=== PATIENT | female | born 1980 | race Caucasian/White ===

== ENCOUNTER → 2016-08-01 | Outpatient (CLI) | payer MEDICARE, MEDICAID ==
[2016-08-01 10:14] LABS: MEAN CORPUSCULAR HEMOGLOBIN 31.4 pg (27.0-33.4); MEAN CORPUSCULAR HGB CONC 34.1 g/dL (32.0-36.0); MEAN CORPUSCULAR VOLUME 92 fl (80-97); RED BLOOD COUNT 4.78 10^6/uL (3.72-5.28); RED CELL DISTRIBUTION WIDTH 13.5 % (11.5-14.0); WHITE BLOOD COUNT 10.3 10^3/uL (4.0-10.5)
[2016-08-01 10:17] LABS: APPEARANCE,URINE CLEAR; BILIRUBIN,URINE NEGATIVE (NEGATIVE); GLUCOSE, URINE >=500 mg/dL (NEGATIVE); KETONES,URINE NEGATIVE (NEGATIVE); LEUKOCYTE ESTERASE,URINE NEGATIVE (NEGATIVE); NITRITE,URINE NEGATIVE (NEGATIVE); PROTEIN,URINE NEGATIVE (NEGATIVE); URINE SPECIFIC GRAVITY 1.009; UROBILINOGEN,URINE NEGATIVE mg/dL (<2.0)
[2016-08-01 10:32] LABS: URINE BARBITURATES SCREEN NEGATIVE; URINE METHADONE SCREEN NEGATIVE; URINE OPIATES LOW NEGATIVE; URINE PHENCYCLIDINE SCREEN NEGATIVE
[2016-08-01 10:34] LABS: ALANINE AMINOTRANSFERASE 38 U/L (9-52); ALBUMIN 4.3 g/dL (3.5-5.0); ALKALINE PHOSPHATASE 86 U/L (38-126); ANION GAP 13 (5-19); ASPARTATE AMINO TRANSFERASE 21 U/L (14-36); BILIRUBIN,DIRECT 0.4 mg/dL (0.0-0.4); BILIRUBIN,TOTAL 0.6 mg/dL (0.2-1.3); BLOOD UREA NITROGEN 12 mg/dL (7-20); CALCIUM 9.6 mg/dL (8.4-10.2); CARBON DIOXIDE 20 mmol/L (22-30); CHLORIDE 107 mmol/L (98-107); CHOLESTEROL 221.61 mg/dL (0-200); Direct HDL 41 mg/dL (>40); GLUCOSE 292 mg/dL (75-110); POTASSIUM 4.6 mmol/L (3.6-5.0); SODIUM 139.8 mmol/L (137-145); TOTAL PROTEIN 7.9 g/dL (6.3-8.2); TRIGLYCERIDES 190 mg/dL (<150)
[2016-08-01 10:46] LABS: DIRECT LDL 148 mg/dL (<100)
== END ==
LOC: OD 09:07
PROVIDERS: ATTEND Nurse Practitioner Psychiatric/Mental Health
DX: Z51.81 Encounter for therapeutic drug level monitoring (principal); Z79.899 Other long term (current) drug therapy
CPT/HCPCS: 36415; 80053; 80061; 80307; 81001; 84443; 85027

== ENCOUNTER 2017-07-31 23:32 | Emergency (ER) | payer MEDICARE, MEDICAID ==
--- NOTE | 2017-08-01 00:04 | ER Document Report ---
ED General - General Chief Complaint: headache, ear, neck and throat pain Stated Complaint: HEADACHE Time Seen by Provider: 08/01/17 00:04 Mode of Arrival: Ambulatory Information source: Patient Notes: 36-year-old with past medical history of thyroid problems who presented today for evaluation of throat pain, ear pain as well as dry cough for the past few days. Patient is actively seen primary care provider as well as recently referred to ENT for further workup and management of her thyroid disease. Patient also reported facial pain as well as dental pain associated with her symptoms. Patient has no evidence of trismus or drooling. Took BC powder at home with no improvement of her symptoms. TRAVEL OUTSIDE OF THE [place] IN LAST 30 DAYS: No - Related Data Allergies/Adverse Reactions: haloperidol [From Haldol] Allergy (Verified 09/29/15 08:52) haloperidol lactate [From Haldol] Allergy (Verified 09/29/15 08:52) hydroxyzine [From Vistaril] Allergy (Verified 11/12/15 23:15) Past Medical History - General Information source: Patient - Social History Smoking Status: Current Every Day Smoker Family History: Reviewed & Not Pertinent Patient has suicidal ideation: No Patient has homicidal ideation: No Endocrine Medical History: Reports: Hx Diabetes Mellitus Type 1 - PREDIABETIC, Hx Diabetes Mellitus Type 2 Renal/ Medical History: Denies: Hx Peritoneal Dialysis Psychiatric Medical History: Reports: Hx Anxiety, Hx Bipolar Disorder, Hx Schizophrenia Past Surgical History: Reports: Hx Oral Surgery - Immunizations Immunizations up to date: Yes Hx Diphtheria, Pertussis, Tetanus Vaccination: No Hx Pneumococcal Vaccination: 03/12/00 Review of Systems - Review of Systems Notes: REVIEW OF SYSTEMS: CONSTITUTIONAL: -fevers, -chills EENT: -eye pain, -difficulty swallowing, -nasal congestion, + dental pain, + ear pain, + sore throat CARDIOVASCULAR: -chest pain, -syncope. RESPIRATORY: + Cough, -SOB GASTROINTESTINAL: -abdominal pain, -nausea, -vomiting, -diarrhea GENITOURINARY: -dysuria, -hematuria MUSCULOSKELETAL: -back pain, -neck pain SKIN: -rash or skin lesions. HEMATOLOGIC: -easy bruising or bleeding. LYMPHATIC: -swollen, enlarged glands. NEUROLOGICAL: -altered mental status or loss of consciousness, -headache, - neurologic symptoms PSYCHIATRIC: -anxiety, -depression. ALL OTHER SYSTEMS REVIEWED AND NEGATIVE. Physical Exam - Notes Notes: Reviewed vital signs and nursing note as charted by RN. CONSTITUTIONAL: Alert and oriented and responds appropriately to questions, overweight HEAD: Normocephalic; atraumatic EYES: PERRL; Conjunctivae clear, sclerae non-icteric ENT: normal nose; rhinorrhea, patient has erythema of the pharynx without any exudates or trismus, no stridor NECK: Supple without meningismus; non-tender; no cervical lymphadenopathy, no masses CARD: Regular rate and rhythm; no murmurs, no clicks, no rubs, no gallops; symmetric distal pulses RESP: Normal chest excursion without splinting or tachypnea; breath sounds clear and equal bilaterally ABD/GI: Normal bowel sounds; non-distended; soft, BACK: The back appears normal and is non-tender to palpation EXT: Normal ROM in all joints; non-tender to palpation; no cyanosis, no effusions, no edema SKIN: Normal color for age and race; warm; dry; good turgor; capillary refill < 2 seconds; no acute lesions noted NEURO: .Cranial nerves 3-12 intact. Motor strength 5/5 bilaterally. Sensation intact to touch bilaterally. No pronator drift. Finger to nose intact bilaterally PSYCH: The patient's mood and manner are appropriate. Grooming and personal hygiene are appropriate. Course - Re-evaluation Re-evalutation: 36 here for evaluation of sore throat, ear pain as well as dental pain and facial pain Differential diagnoses includes URI, sinusitis, acute pharyngitis Examination did not reveal any evidence of otitis media We will obtain rapid strep as well as give patient Motrin for her headache as well as sore throat Disposition per results 08/01/17 00:44 08/01/17 01:02 Rapid strep is negative, will treat patient with Augmentin for possible sinusitis Follow-up with primary care physician Patient was given strict return precautions to come back if symptoms are not improving Discharge - Discharge Clinical Impression: Acute bacterial sinusitis Condition: Stable Instructions: Sinusitis ([facility]) Additional Instructions: Please take antibiotics as prescribed Use [id number] decongestants to help her symptoms Use nasal rinse Come back if it worsening headache, nausea vomiting, fevers or chills Prescriptions: Amox Tr/Potassium Clavulanate [Augmentin 875-125 Tablet] 1 tab PO BID 10 Days # 20 tablet
[2017-08-01] MEDS ORDERED: IBUPROFEN 600 MG TABLET PO ONE (00:21)
== END 2017-08-01 01:17 | disposition home or self-care (01) ==
LOC: ER 23:32
DX: J01.90 Acute sinusitis, unspecified (principal); B96.89 Other specified bacterial agents as the cause of diseases classified elsewhere; K08.9 Disorder of teeth and supporting structures, unspecified; R51 Headache; J02.9 Acute pharyngitis, unspecified; F17.200 Nicotine dependence, unspecified, uncomplicated; E11.9 Type 2 diabetes mellitus without complications
CPT/HCPCS: 99282; 87070; 87880; A9270

== ENCOUNTER 2017-10-19 10:49 | Emergency (ER) | payer MEDICARE, MEDICAID ==
[2017-10-19 10:59] VITALS: BP 140/94
--- NOTE | 2017-10-19 11:46 | ER Document Report ---
ED Medical Screen (RME) - General Chief Complaint: Psych Problem Stated Complaint: MEDICATION REFILL Time Seen by Provider: 10/19/17 11:43 Information source: Law Enforcement TRAVEL OUTSIDE OF THE [place] IN LAST 30 DAYS: No - HPI Patient complains to provider of: med refill Onset: Just prior to arrival - this patient has been very disruptive in the ED - - I never evaluated her other than to be told by [employer] that she was"going to retirement' . I was not able to medically clear her as she was not cooperative. - Related Data Allergies/Adverse Reactions: haloperidol [From Haldol] Allergy (Verified 09/29/15 08:52) haloperidol lactate [From Haldol] Allergy (Verified 09/29/15 08:52) hydroxyzine [From Vistaril] Allergy (Verified 11/12/15 23:15) Past Medical History Endocrine Medical History: Reports: Hx Diabetes Mellitus Type 1 - PREDIABETIC, Hx Diabetes Mellitus Type 2 Renal/ Medical History: Denies: Hx Peritoneal Dialysis Psychiatric Medical History: Reports: Hx Anxiety, Hx Bipolar Disorder, Hx Schizophrenia Past Surgical History: Reports: Hx Oral Surgery - Immunizations Immunizations up to date: Yes Hx Diphtheria, Pertussis, Tetanus Vaccination: No Physical Exam - Vital signs Vitals: Temp Pulse Resp BP Pulse Ox 99.3 F 111 H 18 140/94 H 95 10/19/17 10:56 10/19/17 10:56 10/19/17 10:56 10/19/17 10:56 10/19/17 10:56 Course - Vital Signs Vital signs: Temp Pulse Resp BP Pulse Ox 99.3 F 111 H 18 140/94 H 95 10/19/17 10:56 10/19/17 10:56 10/19/17 10:56 10/19/17 10:56 10/19/17 10:56 Doctor's Discharge - Discharge Referrals: GOMEZ CAGE MD [Primary Care Provider] - Follow up as needed
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
== END 2017-10-19 11:46 | disposition left against medical advice (07) ==
LOC: ER 10:49
DX: Z53.21 Procedure and treatment not carried out due to patient leaving prior to being seen by health care provider (principal)
CPT/HCPCS: 99284

== ENCOUNTER 2017-10-23 16:54 | Emergency (ER) | payer MEDICARE, MEDICAID ==
[2017-10-23] MEDS ORDERED: OLANZAPINE INJ/PF 10 MG SDV IM ONE (17:08)
[2017-10-23 17:11] VITALS: BP 147/81
--- NOTE | 2017-10-23 17:14 | ER Document Report ---
ED Psych Disorder / Suicide - General Mode of Arrival: Ambulatory Information source: Patient TRAVEL OUTSIDE OF THE [place] IN LAST 30 DAYS: No - General Chief Complaint: Psych Problem Stated Complaint: IVC WITH PAPERS Time Seen by Provider: 10/23/17 17:08 Notes: 36-year-old female that presents to the emergency department today in the way she frequently presents here -- belligerent, yelling, argumentative. The last time the patient was seen here she was arrested in triage. Patient was brought here by the [facility]'s department today. According to [facility] department paperwork, the patient was IVC'd from the skilled nursing for behavioral problems. Patient was slamming doors, using obscene language and threatening other inmates etc. (LITZY GRAY) - Related Data Allergies/Adverse Reactions: haloperidol [From Haldol] Allergy (Verified 09/29/15 08:52) haloperidol lactate [From Haldol] Allergy (Verified 09/29/15 08:52) hydroxyzine [From Vistaril] Allergy (Verified 11/12/15 23:15) Past Medical History - General Information source: [facility] Records - Social History Smoking Status: Smoker,Current Status Unk Family History: Reviewed & Not Pertinent Endocrine Medical History: Reports: Hx Diabetes Mellitus Type 2 Psychiatric Medical History: Reports: Hx Anxiety, Hx Bipolar Disorder, Hx Schizophrenia Past Surgical History: Reports: Hx Oral Surgery - Immunizations Immunizations up to date: Yes Hx Diphtheria, Pertussis, Tetanus Vaccination: No Hx Pneumococcal Vaccination: 03/12/00 Review of Systems - Review of Systems Constitutional: No symptoms reported EENT: No symptoms reported Cardiovascular: No symptoms reported Respiratory: No symptoms reported Gastrointestinal: No symptoms reported Genitourinary: No symptoms reported Female Genitourinary: No symptoms reported Musculoskeletal: No symptoms reported Skin: No symptoms reported Hematologic/Lymphatic: No symptoms reported Neurological/Psychological: See HPI, Other - Bizarre behavior -: Yes All other systems reviewed and negative Physical Exam - Vital signs Vitals: Temp Pulse Resp BP Pulse Ox 98.4 F 117 H 18 147/81 H 97 10/23/17 16:54 10/23/17 16:54 10/23/17 16:54 10/23/17 16:54 10/23/17 16:54 - Notes Notes: Physical Exam: General: Alert. HEENT: Normocephalic. Atraumatic. PERRL. Extraocular movements intact. Oropharynx clear. Neck: Supple. Non-tender. Respiratory: No respiratory distress. Clear and equal breath sounds bilaterally. Cardiovascular: Regular rate and rhythm. Abdominal: Normal Inspection. Non-tender. No distension. Normal Bowel Sounds. Back: Non-tender. No deformity or step off. Extremities: Moves all four extremities. Upper extremities: Normal inspection. Normal ROM. Lower extremities: Normal inspection. No edema. Normal ROM. Neurological: AAOx4. Belligerent speech. Psychological: Argumentative, confrontational, belligerent speech. Yelling out despite saying she is not raising her voice. Various absurd demands. Skin: Warm. Dry. Normal color. (LITZY GRAY) Course - Re-evaluation Re-evalutation: 10/23/17 17:27 The patient is well known to the mental health providers here as well as the emergency room staff. She was seen by Neil Sharma who knows her well and interacted with her 4 days ago. In consultation with Dr. Mueller, we were advised to administer the patient Zyprexa 10 mg IM and discharge her to follow-up with her mental health provider. Her behavior is well thought out and voluntary when when the IVC paperwork is red and compared to the behavior that got her arrested 4 days ago, and review of prior visits here for psychiatric problems. She is quite confrontational, and manipulative. She is demanding to be allowed to Google the medication Zyprexa, although she also states that she has had it in the past. When the patient learned that she would not be staying here, she began making threats about having me and others investigated. (MIRI NAJERA) - Vital Signs Vital signs: Temp Pulse Resp BP Pulse Ox 98.4 F 117 H 18 147/81 H 97 10/23/17 16:54 10/23/17 16:54 10/23/17 16:54 10/23/17 16:54 10/23/17 16:54 Discharge - Discharge Clinical Impression: Behavioral problem Condition: Stable Disposition: HOME, SELF-CARE Additional Instructions: You have been evaluated by medical and behavioral health teams for ongoing behaviors as it relates to your personality characteristics and have been deemed appropriate for discharge. Please follow-up with your outpatient mental health provider this week. AT ANY TIME, IF YOUR SYMPTOMS CHANGE SIGNIFICANTLY OR WORSEN OR YOU DEVELOP NEW SYMPTOMS, RETURN TO THE EMERGENCY DEPARTMENT IMMEDIATELY FOR RE-EVALUATION. Referrals: GOMEZ CAGE MD [Primary Care Provider] - Follow up as needed Jenniferibe Attestation: 10/23/17 17:22 I personally performed the services described in the documentation, reviewed and edited the documentation which was dictated to the scribe in my presence, and it accurately records my words and actions. (MIRI NAJERA) Scribe Documentation - Scribe Written by Cory:: Cory Araujo, 10/23/2017 1752 acting as scribe for :: Matheus
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
== END 2017-10-23 18:30 | disposition home or self-care (01) ==
LOC: ER 16:54
DX: R46.89 Other symptoms and signs involving appearance and behavior (principal); E11.9 Type 2 diabetes mellitus without complications; Z88.8 Allergy status to other drugs, medicaments and biological substances
CPT/HCPCS: 96372; 99285

== ENCOUNTER → 2018-08-22 | Outpatient (CLI) | payer OTHER, MEDICARE, MEDICAID ==
--- NOTE | 2018-08-22 12:18 | RADIOLOGY REPORT (SQ) ---
EXAM DESCRIPTION: CHEST PA/LATERAL COMPLETED DATE/TIME: 08/22/2018 12:08 pm REASON FOR STUDY: SHORTNESS OF BREATH COMPARISON: AP chest 02/28/2014 EXAM PARAMETERS: NUMBER OF VIEWS: two views TECHNIQUE: Digital Frontal and Lateral radiographic views of the chest acquired. RADIATION DOSE: NA LIMITATIONS: none FINDINGS: LUNGS AND PLEURA: No opacities, masses or pneumothorax. No pleural effusion. MEDIASTINUM AND HILAR STRUCTURES: No masses or contour abnormalities. HEART AND VASCULAR STRUCTURES: Heart normal size. No evidence for failure. BONES: No acute findings. HARDWARE: None in the chest. OTHER: No other significant finding. IMPRESSION: NO SIGNIFICANT RADIOGRAPHIC FINDING IN THE CHEST. TECHNICAL DOCUMENTATION: JOB ID: [id number] [employer]- All Rights Reserved Reading location - IP/workstation name: [email or web address]
== END ==
LOC: OD 11:56
PROVIDERS: ATTEND Nurse Practitioner Acute Care
DX: R06.02 Shortness of breath (principal)
CPT/HCPCS: 71046

== ENCOUNTER 2018-12-05 00:47 | Emergency (ER) | payer MEDICARE, MEDICAID ==
[2018-12-05 03:56] VITALS: BP 136/90
[2018-12-05] MEDS ORDERED: CEPHALEXIN 500 MG CAPSULE PO ONE (05:01)
[2018-12-05] MEDS ORDERED: ONDANSETRON 4 MG TAB.RAPDIS PO ONE (05:01)
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
== END 2018-12-05 05:33 | disposition home or self-care (01) ==
LOC: ER 00:47
DX: L73.9 Follicular disorder, unspecified (principal); R11.0 Nausea; F17.200 Nicotine dependence, unspecified, uncomplicated; Z88.8 Allergy status to other drugs, medicaments and biological substances
CPT/HCPCS: 99282; 82962; A9270 ×2; S0119

== ENCOUNTER 2018-12-17 03:51 | Emergency (ER) | payer MEDICARE, MEDICAID ==
[2018-12-17 04:01] VITALS: BP 159/74
[2018-12-17 08:13] LABS: APPEARANCE,URINE CLEAR; BILIRUBIN,URINE NEGATIVE (NEGATIVE); COLOR,URINE STRAW; GLUCOSE, URINE >=500 mg/dL (NEGATIVE); KETONES,URINE TRACE mg/dL (NEGATIVE); LEUKOCYTE ESTERASE,URINE NEGATIVE (NEGATIVE); NITRITE,URINE NEGATIVE (NEGATIVE); PROTEIN,URINE NEGATIVE (NEGATIVE); UROBILINOGEN,URINE NEGATIVE mg/dL (<2.0)
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
--- NOTE | 2018-12-17 08:59 | RADIOLOGY REPORT (SQ) ---
EXAM DESCRIPTION: CHEST 2 VIEWS COMPLETED DATE/TIME: 12/17/2018 8:47 am REASON FOR STUDY: cough COMPARISON: 08/22/2018 EXAM PARAMETERS: NUMBER OF VIEWS: two views TECHNIQUE: Digital Frontal and Lateral radiographic views of the chest acquired. RADIATION DOSE: NA LIMITATIONS: none FINDINGS: LUNGS AND PLEURA: No opacities, masses or pneumothorax. No pleural effusion. MEDIASTINUM AND HILAR STRUCTURES: No masses or contour abnormalities. HEART AND VASCULAR STRUCTURES: Heart normal size. No evidence for failure. BONES: No acute findings. HARDWARE: None in the chest. OTHER: No other significant finding. IMPRESSION: No acute abnormality of the lungs. No focal airspace opacity. TECHNICAL DOCUMENTATION: JOB ID: [id number] [employer]- All Rights Reserved Reading location - IP/workstation name: [email or web address]
[2018-12-17 09:04] LABS: URINE AMPHETAMINES SCREEN NEGATIVE; URINE BARBITURATES SCREEN NEGATIVE; URINE BENZODIAZEPINES SCREEN NEGATIVE; URINE COCAINE SCREEN NEGATIVE; URINE MARIJUANA (THC) SCREEN UNCONFIRMED POSITIVE; URINE METHADONE SCREEN NEGATIVE; URINE PHENCYCLIDINE SCREEN NEGATIVE
== END 2018-12-17 09:15 | disposition home or self-care (01) ==
LOC: ER 03:51
DX: R20.8 Other disturbances of skin sensation (principal); R05 Cough; R49.0 Dysphonia; F25.0 Schizoaffective disorder, bipolar type; F17.290 Nicotine dependence, other tobacco product, uncomplicated; F17.210 Nicotine dependence, cigarettes, uncomplicated; F12.10 Cannabis abuse, uncomplicated; E11.9 Type 2 diabetes mellitus without complications; Z77.098 Contact with and (suspected) exposure to other hazardous, chiefly nonmedicinal, chemicals; Z88.8 Allergy status to other drugs, medicaments and biological substances
CPT/HCPCS: 71046; 80307; 81001; 99283